=== PATIENT | male | born 1975 ===

== ENCOUNTER 2025-10-04 14:21 | Outpatient (AMB) | payer MEDICAID, SELFPAY ==
--- NOTE | 2025-10-04 14:40 | XR_ITS ---
EXAMINATION: Bilateral knees 2 views Right lateral knee left lateral knee 2 views Bilateral Axuni single view TECHNIQUE: Bilateral AP knees standing single view Bilateral PA knees standing flexion single view Standing right lateral knee left lateral knee 2 views Bilateral Axuni single view total 5 years Date and time: October 04, 2025, 1457 hours INDICATION: Bilateral knee pain 10 years FINDINGS: Bilateral advanced tricompartment osteoarthritis Severe narrowing medial joint space right knee No fractures Small bilateral knee effusions IMPRESSION: Bilateral advanced tricompartment osteoarthritis, including severe narrowing medial joint space right knee
--- NOTE | 2025-10-04 14:46 | ORTHONT_ITS ---
Exam Exam Patient is in no acute distress and is cooperative with the examination today. Breathing is nonlabored. In no respiratory distress. Bilateral extremities were evaluated and demonstrates sensation intact to light touch. Palpable pedal pulses are present. No significant edema is present. Bilateral hips were examined. The patient has no pain with log roll of the hips. Internal rotation to 30 degrees and external rotation to 30 degrees is painless. Negative FADIR. The left knee was examined. The left knee is in varus alignment. Range of motion from 0-115 degrees. Knee is stable to varus and valgus as well as AP translation with <5mm. Patient has a negative McMurrays. There is no pain with patellofemoral compression and no crepitus noted. The knee is tender to palpation medially. The right knee was also examined. The right knee is in varus alignment. Range of motion from 0-120 degrees. Knee is stable to varus and valgus as well as AP translation with <5mm. Patient has a negative McMurrays. There is no pain with patellofemoral compression and no crepitus noted. The knee is tender to palpation medially. Assessment and Plan Problem List (1) Degenerative arthritis of knee, bilateral: Status: Acute Plan: Patient is a 50-year-old male with bilateral knee pain and bilateral knee arthritis. Will get weightbearing x-rays as his last x-rays were nonweig htbearing. We do suspect his significant arthritis. He has failed conservative treatment already. He has tried 6 injections. We will see him when he gets his weightbearing x-rays done to talk about further treatment options. Questionairres Past Medical History Past Medical History Have you ever been diagnosed with any of the following: Subjective Immunization / Flu Flu Vaccine in the Last 12 Months: Yes Flu Vaccine Exclusion Criteria: Already Received History of Present Illness Chief complaint: Bilateral knee pain Patient is a 50-year-old male with right greater than left knee pain that has been ongoing for several years. The right knee pain is medially. The pain is affecting quality life and happiness. Has had over 6 injections in the past and has tried Tylenol. He is allergic to NSAIDs Review of Systems Review of Systems: All systems negative unless otherwise noted in HPI.
== END 2025-10-04 14:47 | disposition home or self-care (01) ==
LOC: HODSRG 14:21
PROVIDERS: PCP Family Medicine; Referring Provider Family Medicine; Supervising Provider Orthopaedic Surgery Adult Reconstructive Orthopaedic Surgery; Visit Provider Orthopaedic Surgery Adult Reconstructive Orthopaedic Surgery
DX: M25.562 Pain in left knee (principal); M25.561 Pain in right knee; M17.0 Bilateral primary osteoarthritis of knee
CPT/HCPCS: 73564

== ENCOUNTER 2025-10-25 14:38 | Outpatient (AMB) | payer MEDICAID, SELFPAY ==
--- NOTE | 2025-10-25 15:19 | ORTHONT_ITS ---
Vital signs 10/25/25 15:23 Height 1.68 m Height Method Measured Weight 76.374 kg Weight Measurement Method Standing Scale BMI 27.1 BP 147/82 H Blood Pressure Source Automatic Cuff Blood Pressure Location Left Upper Arm Position Sitting Respiration 16 Pulse 82 Pulse Source Monitor Temp 99.1 F Temp Source Temporal Artery Scan Pulse Oximetry (%) 97 Oxygen Delivery Method Room Air Med/Allergies Allergies & Medications Allergies ibuprofen Allergy (Verified 10/25/25 15:28) naproxen Allergy (Verified 10/25/25 15:28) Medication Reconciliation acetaminophen 500 mg tablet 1,000 mg (2 x 500 mg) PO q6hr PRN pain #100 tabs 10/04/25 [Rx Confirmed 10/25/25] Exam Exam Patient is in no acute distress and is cooperative with the examination today. Breathing is nonlabored. In no respiratory distress. Bilateral extremities were evaluated and demonstrates sensation intact to light touch. Palpable pedal pulses are present. No significant edema is present. Bilateral hips were examined. The patient has no pain with log roll of the hips. Internal rotation to 30 degrees and external rotation to 30 degrees is painless. Negative FADIR. The left knee was examined. The left knee is in varus alignment. Range of motion from 0-115 degrees. Knee is stable to varus and valgus as well as AP translation with <5mm. Patient has a negative McMurrays. There is no pain with patellofemoral compression and no crepitus noted. The knee is tender to palpation medially. The right knee was also examined. The right knee is in varus alignment. Range of motion from 0-120 degrees. Knee is stable to varus and valgus as well as AP translation with <5mm. Patient has a negative McMurrays. There is no pain with patellofemoral compression and no crepitus noted. The knee is tender to palpation medially. X-rays demonstrate significant joint space narrowing and complete obliteration of the medial joint space on the right. Assessment and Plan Problem List (1) Degenerative arthritis of knee, bilateral: Status: Acute Plan: Patient is a 50-year-old male with bilateral knee pain and bilateral knee arthritis. He has complete obliteration of the medial joint space on the right and the side of his left knee more. He has had over 6 injections now with physical therapy. We thus discussed total knee replacement as a reasonable option for the right The nature and purpose of the total knee replacement, alternative method(s) of treatment, the material risks involved, and the possibility of complications were fully explained to the patient. The patient does NOT have any of the following contraindications to TKA: - Active infection of the knee joint, OR - Active systemic bacteremia, OR - Active skin infection or open wound at surgical site, OR - Neuropathic arthritis, OR - Severe, rapidly progressive neurological disease, OR - Severe medical condition that makes risks of surgery outweigh the potential benefit The patient was told the most common risks and complications associated with a total knee replacement include, but are not limited to: blood clots in the leg, fatal pulmonary embolism, dislocation of the prosthesis, intraoperative and postoperative fractures of the femur or tibia, infection, failure of the prosthesis or grafting materials, complications from anesthesia, reactions to blood transfusions, postoperative leg length inequality, instability of the knee replacement, nerve damage or injury, vascular injury, delayed wound healing, infection, other injury or even . In addition, there are risks associated with anesthesia given during this operation. Also, the patient was told that after undergoing a total knee replacement there may still be persistent pain or disability. The patient was informed that the success of this operation in part depends upon the mechanical devices which are going to be implanted and that these devices can fail or malfunction, and may need to be repaired or replaced and there are no guarantees as to the longevity of this device or its parts and that it or its parts could fail prematurely. The patient was also notified that during the course of surgery, there may be a need to use bone graft from donors, and that any bone graft used will be carefully screened for communicable diseases, including AIDS, hepatitis, Vick-Creutzfeldt, or other diseases, but despite the screening procedures, there is a small chance that they could contract one of these diseases. Finally, the patient was asked to follow completely and fully with all advice and recommended treatments, and that recovery and ultimate outcome are affected by their compliance with recommended treatment. We discussed the risks, benefits and treatment alternatives, and the patient is interested in proceeding with surgery. We will try to set this up as expeditiously as possible. Office Procedures GNS Level of Care Nursing/Assessment Patient Status: Established Patient Nursing Assessment/Reassesment: Medication Reconciliation, Update PMH in EMR and Vital Signs Coordination of Care: Complex Care and Chronic Disease 1-5, Education Complex Pt/Fam, Consent,records obtained, informed consent, Results/Orders obtained and Staff clarify orders Special Needs: Language special needs Established Patient Charge Established Patient Point Assignment: 95 Established Patient Point Charge: EP Level 3 (80-115) MA Intake Visit Data Collection New Patient or Established: Established Patient (seen at [facility] within 3 years) Reason for Visit:: 3 WEEK F/U XRAY RESULTS Seen by Clinical Staff ONLY (RN/MA): No [employer] Teacher Required: Yes PCP or OBGYN visit in last 3 months: Yes Hx Now: No Do You Feel Safe at Home: Yes Authorities Contacted: N/A Questionairres Past Medical History Past Medical History Have you ever been diagnosed with any of the following: Subjective Visit Visit for: follow up visit and knee Immunization / Flu Flu Vaccine in the Last 12 Months: Yes Flu Vaccine Exclusion Criteria: Already Received History of Present Illness Chief complaint: Bilateral knee pain Patient is a 50-year-old male with right greater than left knee pain that has been ongoing for several years. The right knee pain is medially. The pain is affecting quality life and happiness. He Has had over 6 injections in the past and has tried Tylenol. He is allergic to NSAIDs. The last injection lasted for only a month. He has tried physical therapy in the past with minimal relief for 6 sessions Pain Pain level (0-10): 10 Pain location: anterior Pain quality: sharp Pain timing: increases with activity Associated signs & symptoms: none Ambulatory data Ambulatory device: none Treatments Number of previous injections: 10 Improvement with previous injections: Yes Number of Physical Therapy sessions: 8 Improvement with PT: Yes Improvement with NSAIDS: no Review of Systems Review of Systems: All systems negative unless otherwise noted in HPI.
[2025-10-25 15:23] VITALS: BP 147/82; PULSE 82; RESP 16; TEMP 37.3; O2SAT 97; BMI 27.1
== END 2025-10-25 15:33 | disposition home or self-care (01) ==
LOC: HODSRG 14:38
PROVIDERS: PCP Family Medicine; Referring Provider Family Medicine; Supervising Provider Orthopaedic Surgery Adult Reconstructive Orthopaedic Surgery; Visit Provider Orthopaedic Surgery Adult Reconstructive Orthopaedic Surgery
DX: M17.0 Bilateral primary osteoarthritis of knee (principal); M25.561 Pain in right knee; M25.562 Pain in left knee
CPT/HCPCS: 99213; G0463